=== PATIENT | male | born 1980 ===

== ENCOUNTER 2017-11-22 12:13 | Emergency (ER) | payer OTHER ==
[2017-11-22] MEDS ORDERED: Sodium Chloride 0.9% 1,000 ML IV ONE (13:09)
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
[2017-11-22] MEDS ORDERED: Sodium Chloride 0.9% 1,000 ML ONE (13:18)
[2017-11-22] MEDS ORDERED: Morphine 4 MG/ML VIAL ONE (13:18)
[2017-11-22 13:26] LABS: BASO # 0.1 K/uL (0.0-0.2); BASO % 1.1 % (0.0-2.0); EOS # 0.2 K/uL (0.0-0.7); EOS % 1.9 % (0.0-4.0); HEMOGLOBIN 16.1 g/dL (12.0-18.0); LYMPH # 1.2 K/uL (1.0-4.3); LYMPH % 13.6 % (20.0-40.0); MEAN CELL VOLUME 90.7 fL (80.0-94.0); MEAN CORPUSCULAR HEMOGLOBIN 31.4 pg (27.0-31.0); MEAN CORPUSCULAR HGB CONC 34.6 g/dL (33.0-37.0); MEAN PLATELET VOLUME 9.5 fL (7.2-11.7); MONO # 0.4 K/uL (0.0-0.8); MONO % 4.5 % (0.0-10.0); NEUT # 7.2 K/uL (1.8-7.0); NEUT % 78.9 % (50.0-75.0); RBC 5.14 Mil/uL (4.40-5.90); RED CELL DISTRIBUTION WIDTH 12.5 % (11.5-14.5); WHITE BLOOD COUNT 9.1 K/uL (4.8-10.8)
[2017-11-22 13:35] LABS: ALB/GLOB RATIO 1.3 (1.0-2.1); ALBUMIN 4.6 g/dL (3.5-5.0); ALT/SGPT 61 U/L (21-72); AST/SGOT 46 U/L (17-59); BLOOD UREA NITROGEN 17 mg/dL (9-20); CALCIUM 9.2 mg/dl (8.6-10.4); GFR AFRICAN-AMERICAN > 60; GFR NON-AFRICAN AMERICAN > 60
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
[2017-11-22] MEDS ORDERED: Tetracaine 0.5% Ophth 2 ML BOTTLE OU ONE (14:26)
[2017-11-22] MEDS ORDERED: Tetracaine 0.5% Ophth (OR ONLY) ONE (14:28)
[2017-11-22] MEDS ORDERED: Silver Sulfadiazine 1% Cream (20 gm) TOP STA (14:28)
[2017-11-22] MEDS ORDERED: Fluorescein 1 mg Ophthalmic Strip ONE (14:29)
[2017-11-22] MEDS ORDERED: Silver Sulfadiazine 1% Cream (20 gm) ONE (14:37)
[2017-11-22 15:13] VITALS: BP 132/79; PULSE 89; RESP 18; TEMP 98.9
[2017-11-26 13:38] VITALS: O2SAT 100
== END 2017-11-22 15:11 | disposition home or self-care (01) ==
LOC: C.ER 12:13
DX: T22.212A Burn of second degree of left forearm, initial encounter (principal); T22.211A Burn of second degree of right forearm, initial encounter; T20.10XA Burn of first degree of head, face, and neck, unspecified site, initial encounter; X04.XXXA Exposure to ignition of highly flammable material, initial encounter; Y93.89 Activity, other specified; Y92.89 Other specified places as the place of occurrence of the external cause; Y99.0 Civilian activity done for income or pay; Z23 Encounter for immunization
CPT/HCPCS: 16020; 71045; 80053; 85025; 90471; 90715; 96361; 96374; 99285; J2270; J7040